=== PATIENT | male | born 1950 | race Caucasian/White ===

== ENCOUNTER 2018-08-25 17:22 | Outpatient (CLI) | payer OTHER ==
[2012-11-22 11:08] VITALS: BP 137/89
--- NOTE | 2018-08-25 18:17 | Diagnostic Imaging Report ---
YOLANDA MARTIN [facility] [address] [facility] [address] [id number] Report Submission Date: Aug 25, 2018 6:15:55 PM CDT Patient Study Name: ROSAMARIA MASTERS Date: Aug 25, 2018 5:30:12 PM CDT Modality Type: DX Gender: M Description: LOWER EXTREMITY : 50 Institution: [facility] Physician: YOLANDA MARTIN Right foot History: Severe pain Three views of the right foot at weight-bearing demonstrate a small plantar calcaneal spur. There is narrowing of joint space along the medial aspect of the talonavicular joint. There are additionally mild hypertrophic findings in this location. There is overgrowth of both the medial navicular bone and the medial aspect of the talar head. There is no evidence for acute fracture or dislocation. Impression: No evidence for acute fracture or dislocation. Degenerative findings are present along the medial aspect of the talonavicular joint with associated hypertrophic findings of the medial talus and medial navicular bone. Small plantar calcaneal spur. Electronically signed on Aug 25, 2018 6:15:55 PM CDT by: Mini BISHOP
== END 2018-08-25 17:23 ==
LOC: LAB 17:22
PROVIDERS: ATTEND Podiatrist Foot & Ankle Surgery
DX: M79.671 Pain in right foot (principal); M10.9 Gout, unspecified
CPT/HCPCS: 36415; 73630; 84550

== ENCOUNTER 2019-04-03 13:41 | Outpatient (CLI) | payer OTHER ==
[2012-11-22 11:08] VITALS: BP 137/89
== END 2019-04-03 13:46 | disposition home or self-care (01) ==
LOC: LAB 13:41
PROVIDERS: ATTEND Podiatrist Foot & Ankle Surgery
DX: Z00.01 Encounter for general adult medical examination with abnormal findings (principal); M10.9 Gout, unspecified
CPT/HCPCS: 36415; 84550

== ENCOUNTER 2019-10-23 09:56 | Outpatient (CLI) | payer OTHER ==
[2012-11-22 11:08] VITALS: BP 137/89
[2019-10-23 10:26] LABS: BASOPHILS % 0.4 % (0.0-1.5); NEUTROPHILS # 4.4 # k/uL (1.4-7.7)
== END 2019-10-23 10:01 ==
LOC: LAB 09:56
PROVIDERS: ATTEND Family Medicine
DX: M79.673 Pain in unspecified foot (principal)
CPT/HCPCS: 36415; 84550; 85025

== ENCOUNTER 2019-11-07 08:42 | Outpatient (CLI) | payer OTHER ==
[2012-11-22 11:08] VITALS: BP 137/89
--- NOTE | 2019-11-07 11:09 | Diagnostic Imaging Report ---
PATIENT MR#: [id number] PATIENT PATIENT NAME: ROSAMARIA MASTERS DATE OF : 1950 REFERRING PHYSICIAN: Ping Dan EXAM DATE: 11/07/2019 ACCESSION NUMBER: [id number] EXAM DESCRIPTION: FOOT 3 VIEWS OR MORE CLINICAL HISTORY: PAIN IN THE RIGHT 1ST MTP COMPARISON: August 25, 2018. TECHNIQUE: DX right foot, 3 views Osseous structures: The osseous structures are intact with no evidence of fracture. There is subtle l ucency of the cortex of the 1st metatarsal head and proximal phalanx base at the 1st MTP joint, consistent with ear ly erosions of gout. Plantar calcaneal spur at the plantar fascia insertion, which may predispose to plantar fascii tis. Joint spaces: The bones are well aligned, without dislocation. No articular surface abnormality is no everardo. Soft tissues: There is mild adjacent 1st MTP soft tissue edema without discrete soft tissue tophi not ed. IMPRESSION: Faint marginal erosions of the 1st MTP joint, with mild adjacent soft tissue edema consis tent with mild gout, minimally advanced compared to prior. Read by: Dr. Jordan Menchaca Transcribed by: Jordan Menchaca Transcribed Date: 11/07/2019 11:09:06 AM Electronically signed by: Dr. Jordan Menchaca Date signed: 11/07/2019 11:09:06 AM
== END 2019-11-07 08:52 ==
LOC: RAD 08:42
PROVIDERS: ATTEND Family Medicine
DX: M79.671 Pain in right foot (principal)
CPT/HCPCS: 73630